=== PATIENT | female | born 1950 | race Caucasian/White ===

== ENCOUNTER 2023-08-04 12:11 | Emergency (ER) | payer MEDICARE ==
[~2023-08-04] VITALS: Ht 170.2 cm; Wt 95.3 kg
[2023-08-04] MEDS ORDERED: KETOROLAC TROMETHAMINE 30 MG/ML VIAL IV STA (12:37)
[2023-08-04] MEDS ORDERED: DICYCLOMINE HCL 20 MG/2 ML VIAL IM ONE (12:45)
[2023-08-04] MEDS ORDERED: SODIUM CHLORIDE 0.9% 1000ML 1,000 ML IV SCH (12:45)
[2023-08-04 12:49] LABS: BASOPHILS # (AUTO) 0.1 (0.0-0.1); BASOPHILS % 0.7 % (0.0-1.0); EOSINOPHILS # (AUTO) 0.1 (0.0-0.4); EOSINOPHILS % 1.1 % (0.0-6.0); HEMATOCRIT 46.2 % (34.2-44.1); HEMOGLOBIN 14.7 g/dL (12.0-16.0); LYMPHOCYTES # (AUTO) 2.3 (1.0-3.2); LYMPHOCYTES % 18.2 % (18.0-39.1); MEAN CORPUSCULAR HEMOGLOBIN 28.5 pg (28-32); MEAN CORPUSCULAR HGB CONC 31.8 g/dL (31-35); MEAN CORPUSCULAR VOLUME 89.5 fL (81-99); MONOCYTES % 8.1 % (4.4-11.3); NEUTROPHILS # (AUTO) 8.9 (2.1-6.9); NEUTROPHILS % 71.5 % (38.7-80.0); PLATELET COUNT 196 x10e3/uL (140-360); RED BLOOD COUNT 5.16 x10e6/uL (3.6-5.1); RED CELL DISTRIBUTION WIDTH 14.6 % (11.7-14.4); WHITE BLOOD COUNT 12.44 x10e3/uL (4.8-10.8)
[2023-08-04 13:07] LABS: ALBUMIN/GLOBULIN RATIO 1.1 (0.8-2.0); BILIRUBIN,TOTAL 0.8 mg/dL (0.2-1.2); CREATININE, SERUM 0.75 mg/dL (0.57-1.11); TOTAL PROTEIN 7.5 g/dL (6.5-8.1)
[2023-08-04 13:14] LABS: TROPONIN I 0.008 ng/mL (0-0.300)
[2023-08-04] MEDS ORDERED: IOPAMIDOL 370 MG/ML 100 ML INFUS..BTL INJ ONE ×2 (13:22→13:40)
[2023-08-04 13:29] LABS: BILIRUBIN,URINE NEGATIVE (NEGATIVE); CLARITY,URINE CLEAR (CLEAR); COLOR,URINE YELLOW (YELLOW); GLUCOSE, URINE NEGATIVE (NEGATIVE); KETONES,URINE NEGATIVE (NEGATIVE); LEUKOCYTE ESTERASE ,URINE NEGATIVE (NEGATIVE); NITRITE,URINE NEGATIVE (NEGATIVE); PH,URINE 6 (5 - 7); PROTEIN,URINE DIPSTICK NEGATIVE (NEGATIVE); URINE UROBILINOGEN 0.2 mg/dL (0.2 - 1)
[2023-08-04 13:34] LABS: EPITHELIAL CELLS,URINE MODERATE /LPF
[2023-08-04 13:35] LABS: BACTERIA,URINE FEW /HPF; RBC,URINE 0-5 /HPF (0-5); WBC,URINE (MAN) 0-5 /HPF (0-5)
[2023-08-04] MEDS ORDERED: AMOX TR-K CLV1 EAC2 PO (14:19)
[2023-08-04] MEDS ORDERED: DICYCLOMINE HCL20 MG PO (14:20)
[2023-08-04 14:53] VITALS: BP 120/73; PULSE 85; RESP 16; TEMP 98.8; O2SAT 97
== END 2023-08-04 14:55 | disposition home or self-care (01) ==
LOC: ER 12:16
DX: R50.9 Fever, unspecified (principal); K57.32 Diverticulitis of large intestine without perforation or abscess without bleeding; R10.30 Lower abdominal pain, unspecified; E03.9 Hypothyroidism, unspecified
CPT/HCPCS: 36415; 71045; 74177; 80053; 81001; 83690; 84484; 85025; 93005; 99284; J0500; J1885; J7030; Q9967

== ENCOUNTER 2024-07-23 11:31 | Emergency (ER) | payer MEDICARE ==
[~2024-07-23] VITALS: Ht 170.2 cm; Wt 95.3 kg
[~2024-07-23 11:31] MED LIST: AMOX TR-K CLV1 EAC2 PO; DICYCLOMINE HCL20 MG PO
[2024-07-23 11:40] VITALS: PULSE 81; RESP 15; TEMP 97.3
[2024-07-23] MEDS: DEXAMETHASONE SOD PHOS 10 MG/1 ML VIAL IV ONE (12:43)
[2024-07-23] MEDS: KETOROLAC TROMETHAMINE 30 MG/ML VIAL IM STA (12:43)
[2024-07-23] MEDS ORDERED: GABAPENTIN100 MG PO (13:38)
[2024-07-23 14:03] VITALS: BP 110/63; PULSE 70; RESP 16; TEMP 97.2; O2SAT 98
== END 2024-07-23 14:00 | disposition home or self-care (01) ==
LOC: ER 11:36
DX: R20.0 Anesthesia of skin (principal); M54.12 Radiculopathy, cervical region; E03.9 Hypothyroidism, unspecified; R94.31 Abnormal electrocardiogram [ECG] [EKG]; Z87.19 Personal history of other diseases of the digestive system
CPT/HCPCS: 72125; 93005; 99283; J1100; J1885